=== PATIENT | female | born 1995 | race Caucasian/White ===

== ENCOUNTER 2017-07-28 16:43 | Outpatient (CLI) | payer MEDICAID ==
[~2017-07-28] VITALS: Ht 149.9 cm; Wt 69.1 kg
[2017-07-28 17:07] VITALS: BP 122/80; PULSE 76; TEMP 98.2
[2017-07-28] MEDS ORDERED: PRENATAL PLUS (17:13)
[2017-07-28 17:25] VITALS: BP 127/79; PULSE 72
[2017-07-28 18:45] VITALS: BP 118/79; PULSE 71
== END 2017-07-28 18:58 | disposition home or self-care (01) ==
LOC: LDRO 16:43
DX: O47.1 False labor at or after 37 completed weeks of gestation (principal); Z3A.41 41 weeks gestation of pregnancy

== ENCOUNTER 2017-07-29 14:46 | Inpatient (IN) | payer MEDICAID ==
[2017-07-29] VITALS (27 sets, daily range): BP systolic 96–145; BP diastolic 52–100; PULSE 20–117; TEMP 97.4–98.3
[~2017-07-29 14:46] MED LIST: PRENATAL PLUS
[2017-07-29 17:41] LABS: BASO % 0.1 % (0.0-2.0); EOS % 0.1 % (0-4.0); GRAN # 12.5 (1.4-6.5); GRAN % 88.2 % (42.2-75.2); MEAN CELL VOLUME 84 fl (80.0-100.0); MEAN CORPUSCULAR HGB CONC 34 g/dl (33.0-37.0); MEAN PLATELET VOLUME 11.7 fl (7.4-10.4); MONO # 0.6 (0.1-0.6); MONO % 4.1 % (1.7-9.3); PLATELET COUNT 171 K/mm3 (130-400); RED BLOOD COUNT 4.11 M/mm3 (4.10-5.30); REDCELL DISTRIBUTION WIDTH-CV 13.7 % (11.5-14.5)
[2017-07-29 17:43] LABS: HEMATOCRIT 34.6 % (37.0-47.0); HEMOGLOBIN 11.6 g/dl (12.5-16.0); MEAN CORPUSCULAR HEMOGLOBIN 28 pg (27.0-31.0)
[2017-07-30] VITALS (46 sets, daily range): BP systolic 87–149; BP diastolic 50–88; PULSE 63–122; TEMP 97.9–98.7
[2017-07-30] MEDS ORDERED: PERCOCET 325 MG1 TA2 PO (19:05)
[2017-07-30] MEDS ORDERED: MOTRIN 800800 MG/TAB PO (19:05)
[2017-07-31 01:00] VITALS: BP 101/64; PULSE 84; TEMP 98.5
[2017-07-31 10:00] VITALS: BP 123/66; PULSE 74; TEMP 98.2
== END 2017-07-31 17:06 | disposition home or self-care (01) | DRG 775 ==
LOC: LDRO 14:46 → OB 17:01 → LDR 17:01 → OB 07-30 13:30
PROVIDERS: Obstetrics & Gynecology
PROC: 10E0XZZ Delivery of Products of Conception, External Approach (ICD-10-PCS; principal; 2017-07-30)
PROC: 0KQM0ZZ Repair Perineum Muscle, Open Approach (ICD-10-PCS; 2017-07-30)
PROC: 0UQMXZZ Repair Vulva, External Approach (ICD-10-PCS; 2017-07-30)
DX: O48.0 Post-term pregnancy (principal); O76 Abnormality in fetal heart rate and rhythm complicating labor and delivery; O70.1 Second degree perineal laceration during delivery; O71.82 Other specified trauma to perineum and vulva; Z3A.40 40 weeks gestation of pregnancy; Z37.0 Single live birth
CPT/HCPCS: J0690; J1200; J2210; J2270; J2405; J2550; J2590; J7120

== ENCOUNTER → 2017-08-12 | Outpatient (CLI) | payer MEDICAID ==
[~2017-08-12] MED LIST changes: +MOTRIN 800800 MG/TAB PO; +PERCOCET 325 MG1 TA2 PO
== END ==
LOC: LAC 13:17
DX: Z39.1 Encounter for care and examination of lactating mother (principal); Z71.89 Other specified counseling; N64.59 Other signs and symptoms in breast